=== PATIENT | female | born 1985 | race Caucasian/White ===

== ENCOUNTER 2017-02-25 17:19 | Outpatient (CLI) | payer OTHER ==
[~2017-02-25] VITALS: Ht 170.2 cm; Wt 97.7 kg
[2017-02-25 17:28] VITALS: BP 112/65
[2017-02-25] MEDS ORDERED: SERT50TA PO (17:42)
[2017-02-25] MEDS ORDERED: PREN1TAB60 PO (17:42)
[2017-02-25] MEDS ORDERED: PROG200C2 VG (17:42)
[2017-02-25] MEDS ORDERED: DOXY25TA18 PO (18:14)
[2017-02-25] MEDS ORDERED: b6 PO (18:15)
== END 2017-02-25 19:18 | disposition home or self-care (01) ==
LOC: LDOP 17:19
PROVIDERS: ATTEND Obstetrics & Gynecology
DX: O26.892 Other specified pregnancy related conditions, second trimester (principal); R10.9 Unspecified abdominal pain; O60.02 Preterm labor without delivery, second trimester; O26.872 Cervical shortening, second trimester; Z3A.27 27 weeks gestation of pregnancy
CPT/HCPCS: 36415; 59025; 81001; 82731; 87086; 99201; G0463

== ENCOUNTER → 2017-03-06 | Outpatient (CLI) | payer OTHER ==
[~2017-03-06] MED LIST: DOXY25TA18 PO; PREN1TAB60 PO; PROG200C2 VG; SERT50TA PO; b6 PO
[2017-03-06 09:20] LABS: HEMOGLOBIN 12.6 g/dL (11.7-16.4)
== END | disposition home or self-care (01) ==
LOC: LAB 07:52
PROVIDERS: ATTEND Obstetrics & Gynecology
DX: Z34.82 Encounter for supervision of other normal pregnancy, second trimester (principal)
CPT/HCPCS: 36415; 82950; 85025